=== PATIENT | female | born 1965 | race Caucasian/White ===

== ENCOUNTER 2020-05-08 10:38 | Outpatient (CLI) | payer OTHER, SELFPAY ==
--- NOTE | ~2020-05-08 | US_ITS ---
EXAMINATION: US venous doppler [facility] DATE: 05/08/2020 11:55 INDICATION: Left lower limb swelling TECHNIQUE: Grayscale ultrasound images without and with compression and Doppler ultrasound images of the left lower extremity veins were obtained. COMPARISON: None. FINDINGS: The visualized portions of left common femoral vein, profunda (deep) femoral vein, femoral vein, popl iteal vein, peroneal veins, posterior tibial veins, gastrocnemius vein and greater saphenous vein out flow are patent. IMPRESSION: 1. No deep venous thrombosis in the left lower limb. Reviewed, dictated and finalized at location A.
[2020-05-08 11:29] LABS: Alanine Aminotransferase 26 U/L (4-35); Albumin Level 4.2 g/dL (3.5-5.1); Alkaline Phosphatase 73 U/L (38-126); Aspartate Amino Transferase 27 U/L (14-36); Bilirubin,Total 1.7 mg/dL (0.2-1.3); Blood Urea Nitrogen 11 mg/dL (7-17); Calcium 8.7 mg/dL (8.4-10.2); Carbon Dioxide 27 mmol/L (22-30); Chloride 101 mmol/L (98-107); Cholesterol 195 mg/dL (0-200); Estimated Glomerular Filt Rate > 60; Glucose 199 mg/dL (65-105); HDL Direct 52 mg/dL; Potassium 4.2 mmol/L (3.4-5.0); Sodium 134 mmol/L (137-145); Triglycerides 148 mg/dL (<150)
[2020-05-08 11:40] LABS: LDL Cholesterol Direct 115 mg/dL
[2020-05-08 12:21] LABS: Thyroid Stimulating Hormone Reflex 0.685 uIU/mL (0.465-4.68)
== END 2020-05-08 10:39 | disposition home or self-care (01) ==
PROVIDERS: PCP Internal Medicine; Visit Provider Internal Medicine Cardiovascular Disease
DX: R60.0 Localized edema (principal); E78.5 Hyperlipidemia, unspecified
CPT/HCPCS: 36415; 80053; 80061; 83735; 84443; 93971

== ENCOUNTER 2020-06-10 12:29 | Outpatient (CLI) | payer OTHER, SELFPAY ==
--- NOTE | 2020-06-10 13:07 | ECHO_ITS ---
Patient Info Name: Lor Kasper Age: 55 years : 1965 Gender: Female Ht: 68 in Wt: 185 lbs BSA: 2.03 m2 HR: 65 bpm BP: 96 / 63 mmHg Technical Quality: Good Exam Date: 06/10/2020 1:21 PM Exam Location: [facility] Patient Status: Outpatient Admit Date: 06/10/2020 Staff Ordering Physician: Keyshawn Moralez DO Biztalk Software Developer: Edilia Live, CHIEF FINANCIAL OFFICER Attending Provider: Keyshawn Moralez DO Referring Physician: Kirt NEELY; Exam Type: CA echo doppler color flow Study Info Indications E78.5 - Hyperlipidemia, unspecified Complete two-dimensional, color flow and Doppler transthoracic echocardiogram is performed. Summary 1. Left ventricular chamber dimension is normal. 2. Left ventricular systolic function is normal, estimated at 60-65%. 3. The left ventricular diastolic function is grade I diastolic dysfunction. 4. E/e' 16 is elevated. 5. There is trace aortic valve regurgitation. 6. There is trace mitral valve regurgitation. 7. There is mild tricuspid valve regurgitation. 8. No pulmonary hypertension, estimated pulmonary arterial systolic pressure is 29 mmHg. 9. There is trace pulmonic regurgitation. 10. There is trivial pericardial effusion. Left Ventricle E/e' 16 is elevated. Left ventricular chamber dimension is normal. Left ventricular systolic function is normal, estimated at 60-65%. The left ventricular diastolic function is grade I diastolic dysfunction. Right Ventricle Right ventricular chamber dimension is normal. Right ventricular systolic function is normal. Left Atria Left atrial chamber dimension is normal. Right Atria Right atrial chamber dimension is normal. Aortic Valve The aortic valve is trileaflet. There is no aortic valve stenosis. There is trace aortic valve regurgitation. Pulmonic Valve There is trace pulmonic regurgitation. Mitral Valve There is no mitral valve stenosis. There is trace mitral valve regurgitation. Tricuspid Valve There is mild tricuspid valve regurgitation. No pulmonary hypertension, estimated pulmonary arterial systolic pressure is 29 mmHg. Pericardium/Pleural There is trivial pericardial effusion. Inferior Vena Cava Normal inferior vena cava with >50% collapse upon inspiration consistent with normal right atrial pressure, 5 mmHg. Aorta The aortic root size at the sinus of Valsalva is normal. Left Ventricular Outflow Tract Name Value Normal LVOT 2D LVOT Diameter 2.0 cm LVOT Doppler LVOT Peak Gradient 4 mmHg LVOT Mean Gradient 2 mmHg LVOT VTI 19 cm LVOT VTI/AV VTI Ratio 0.7 LVOT Stroke Volume 59 ml LVOT CO 4.5 l/min LVOT CI 2.2 l/min/m2 Mitral Valve Name Value Normal MV Doppler
== END 2020-06-10 12:30 | disposition home or self-care (01) ==
PROVIDERS: PCP Internal Medicine; Visit Provider Internal Medicine Cardiovascular Disease
DX: E66.9 Obesity, unspecified (principal); E78.5 Hyperlipidemia, unspecified; R60.0 Localized edema
CPT/HCPCS: 93306

== ENCOUNTER 2020-08-22 09:04 | Outpatient (CLI) | payer OTHER, SELFPAY ==
--- NOTE | 2020-08-22 09:18 | EST_ITS ---
Patient Info Name: Lor Kasper Age: 55 years : 1965 Gender: Female Ht: 68 in Wt: 190 lbs BSA: 2.05 m2 Technical Quality: Good Exam Date: 08/22/2020 10:09 AM [facility] Patient Status: Outpatient Admit Date: 08/22/2020 Staff Ordering Physician: Keyshawn Berumen DO Whale Fisherman: Joel Oliveira RDCS, RT Attending Provider: KEYSHAWN BERUMEN DO Referring Physician: Kirt NEELY; Exercise Technologist: Suzan Day RDCS Exercise Physician: Keyshawn Berumen DO Exam Type: CA stress echo Study Info Indications R07.9 - Chest pain, unspecified Treadmill exercise stress echocardiogram is performed. Summary 1. 1. Negative Randy exercise stress test for ischemic ST changes by ECG criteria. 2. 2. Reduced functional capacity, achieving 7 METs of workload. 3. 3. Appropriate HR response to exercise. 4. 4. Appropriate HR recovery at 1 minute post exercise. 5. 5. Negative stress echocardiogram for ischemia by wall motion analysis. 6. 6. Patient informed of the above results. Stress Echo Findings Left Ventricle Appropriate increase in LV endocardial thickening with systole. Appropriate augmentation of contractility with systole. No wall motion abnormality. Left Ventricle Normal LV systolic function, no wall motion abnormality. Protocol: Randy Stress ECG Details Stage: REST Duration (min): 5 min : 49 sec Speed (mph): 0.0 Grade (%): 0 HR (bpm): 66 SBP (mmHg): 119 DBP (mmHg): 69 METS: --- Stage: REST Duration (min): 20 min : 30 sec Speed (mph): 0.0 Grade (%): 0 HR (bpm): 74 SBP (mmHg): 119 DBP (mmHg): 69 METS: --- Stage: STAGE 1 Duration (min): 1 min : 0 sec Speed (mph): 1.7 Grade (%): 10 HR (bpm): 99 SBP (mmHg): 119 DBP (mmHg): 69 METS: --- Stage: STAGE 1 Duration (min): 2 min : 0 sec Speed (mph): 1.7 Grade (%): 10 HR (bpm): 119 SBP (mmHg): 119 DBP (mmHg): 69 METS: --- Stage: STAGE 1 Duration (min): 3 min : 0 sec Speed (mph): 1.7 Grade (%): 10 HR (bpm): 126 SBP (mmHg): 162 DBP (mmHg): 85 METS: --- Stage: STAGE 2 Duration (min): 1 min : 0 sec Speed (mph): 2.5 Grade (%): 12 HR (bpm): 137 SBP (mmHg): 162 DBP (mmHg): 85 METS: --- Stage: STAGE 2 Duration (min): 2 min : 0 sec Speed (mph): 2.5 Grade (%): 12 HR (bpm): 150 SBP (mmHg): 198 DBP (mmHg): 81 METS: --- Stage: STAGE 2 Duration (min): 3 min : 0 sec Speed (mph): 2.5 Grade (%): 12 HR (bpm): 152 SBP (mmHg): 198 DBP (mmHg): 81 METS: --- Stage: STAGE 3 Duration (min): 0 min : 1 sec Speed (mph): 0.0 Grade (%): 0 HR (bpm): 152 SBP (mmHg): 198 DBP (mmHg): 81 METS: --- Stage: RECOVERY Duration (min): 0 min : 58 sec Speed (mph): 0.0 Grade (%): 0 HR (bpm): 113 SBP (mmHg): 182 DBP (mmHg): 71 METS: --- Stage: RECOVERY Duration (min): 1 min : 58 sec Speed (mph)
== END 2020-08-22 09:05 | disposition home or self-care (01) ==
PROVIDERS: PCP Internal Medicine; Visit Provider Internal Medicine Cardiovascular Disease
DX: R07.9 Chest pain, unspecified (principal)
CPT/HCPCS: 93351

== ENCOUNTER 2021-03-12 13:37 | Outpatient (CLI) | payer BC, SELFPAY ==
--- NOTE | ~2021-03-12 | CT_ITS ---
EXAMINATION: CT abdomen pelvis wo con DATE: 03/12/2021 14:19 INDICATION: Right flank pain TECHNIQUE: Computed tomography (CT) of the abdomen and pelvis was performed without intravenous contr ast. Automated exposure control and iterative reconstruction technique were employed. Exam dose: 270 .37 mGy-cm total exam DLP. COMPARISON: 03/12/2021 KUB 01/20/2016 CT abdomen pelvis with IV contrast material. FINDINGS: The lung bases are clear. Normal heart size. Trace pericardial fluid. No pleural effusion. Status post cholecystectomy. No hepatic, splenic, pancreatic, right adrenal space-occupying mass lesion is evident on this limited noncontrast examination. Probable 11 mm left adrenal adenoma. The kidneys appear unremarkable. No urinary tract calculus or hydroureteronephrosis. The urinary blad francesca is evacuated, not optimally evaluated. Status post hysterectomy. Bilateral ovarian cysts measuring up to 3.8 cm on the right and 3.2 cm on t he left. There is atherosclerotic calcification but normal caliber of the abdominal aorta. No intraperitoneal or retroperitoneal or pelvic mass lesion or adenopathy or ascites is evident. No bowel obstruction, bowel wall thickening, pneumatosis or intraperitoneal free air. Degenerative spurring of the thoracic spine. No suspicious osteolytic or osteoblastic lesions are not ed. IMPRESSION: Status post cholecystectomy Stable probable cysts 11 mm left adrenal adenoma Up to 3.8 cm right and 3.2 cm left ovarian cysts Reviewed, dictated and finalized at Location A. Reviewed, dictated and finalized at location B.
--- NOTE | ~2021-03-12 | XR_ITS ---
EXAMINATION: XR abdomen/kub 1V INDICATION: Right flank pain TECHNIQUE: Supine views of the abdomen were obtained on 2 radiographs. COMPARISON: CT from today FINDINGS: No urolithiasis is identified. There are multiple phleboliths of the pelvis. The bowel gas pattern is normal. Cholecystectomy clips are noted. IMPRESSION: 1. No urolithiasis identified. Reviewed, dictated and finalized at location A.
== END 2021-03-12 13:38 | disposition home or self-care (01) ==
LOC: ANHIMG 13:41
PROVIDERS: PCP Internal Medicine; Visit Provider Urology
DX: R10.9 Unspecified abdominal pain (principal); Z90.49 Acquired absence of other specified parts of digestive tract; N83.202 Unspecified ovarian cyst, left side
CPT/HCPCS: 74018; 74176

== ENCOUNTER 2023-05-11 07:28 | Outpatient (CLI) | payer BC, SELFPAY ==
--- NOTE | ~2023-05-11 | NM_ITS ---
EXAMINATION: NM leandra stress w perfusion DATE: 05/11/2023 10:47 INDICATION: Chest pain. TECHNIQUE: Rest images were obtained following intravenous administration of 10.5 mCi Tc99m tetrofosm in (Myoview). The patient was infused intravenously with Lexiscan (regadenoson). Then, 33.66 mCi Tc99 m tetrofosmin (Myoview) was administered intravenously, and stress images were obtained. Data was rec onstructed into short axis and horizontal and vertical long axis SPECT images. Gated SPECT images wer e also obtained. COMPARISON: CT abdomen and pelvis 03/12/2021 FINDINGS: There is no definite reversible or fixed perfusion abnormality to suggest ischemia or infar ction. There is no segmental wall motion abnormality. Left ventricular ejection fraction measures > 70%. IMPRESSION: 1. No definite ischemia or infarct. 2. Normal left ventricular ejection fraction measuring >70%. Reviewed, dictated and finalized at location A.
--- NOTE | 2023-05-11 07:30 | ECHO_ITS ---
Patient Info Name: Lor Kasper Age: 58 years : 1965 Gender: Female Ht: 67 in Wt: 180 lbs BSA: 1.98 m2 HR: 75 bpm BP: 112 / 72 mmHg Heart Rhythm: Sinus Rhythm Technical Quality: Fair Exam Date: 05/11/2023 7:47 AM Exam Location: [facility] Patient Status: Outpatient Admit Date: 05/11/2023 Staff Ordering Physician: Keyshawn Moralez DO Marketing Technologist: Bela Calix RDCS Attending Provider: Keyshawn Moralez DO Referring Physician: Kirt NEELY; Exam Type: CA echo doppler color flow Study Info Indications R07.9 - Chest pain, unspecified Complete two-dimensional, color flow and Doppler transthoracic echocardiogram is performed. Summary 1. Complete two-dimensional, color flow and Doppler transthoracic echocardiogram is performed. 2. Left ventricular chamber dimension is normal. 3. Left ventricular systolic function is normal, estimated at 65-70%. 4. The left ventricular diastolic function is grade I diastolic dysfunction. 5. E/e' 16 is elevated. 6. There is mild tricuspid valve regurgitation. 7. No pulmonary hypertension, estimated pulmonary arterial systolic pressure is 23 mmHg. Left Ventricle E/e' 16 is elevated. Left ventricular chamber dimension is normal. Left ventricular systolic function is normal, estimated at 65-70%. The left ventricular diastolic function is grade I diastolic dysfunction. Right Ventricle Right ventricular chamber dimension is normal. Right ventricular systolic function is normal. Left Atria Left atrial chamber dimension is normal. Right Atria Right atrial chamber dimension is normal. Aortic Valve The aortic valve is trileaflet. There is no aortic valve stenosis. There is no aortic valve regurgitation. Pulmonic Valve There is no pulmonic regurgitation. Mitral Valve There is no mitral valve stenosis. There is no mitral valve regurgitation. Tricuspid Valve There is mild tricuspid valve regurgitation. No pulmonary hypertension, estimated pulmonary arterial systolic pressure is 23 mmHg. Pericardium/Pleural There is no pericardial effusion. Inferior Vena Cava Normal inferior vena cava with >50% collapse upon inspiration consistent with normal right atrial pressure, 5 mmHg. Aorta The aortic root size at the sinus of Valsalva is normal. Left Ventricular Outflow Tract Name Value Normal LVOT 2D LVOT Diameter 2.0 cm LVOT Doppler LVOT Peak Gradient 3 mmHg LVOT Mean Gradient 2 mmHg LVOT VTI 18 cm LVOT VTI/AV VTI Ratio 0.8 LVOT Stroke Volume 59 ml LVOT CO 4.0 l/min LVOT CI 2.0 l/min/m2 Pulmonic Valve Name Value Normal RVOT Doppler RVOT Peak Gradient 2 mmHg PV Doppler PV Peak Grad
--- NOTE | 2023-05-11 07:30 | EST_ITS ---
Patient Info Name: Lor Kasper Age: 58 years : 1965 Gender: Female Ht: 67 in Wt: 180 lbs BSA: 1.98 m2 HR: 76 bpm BP: 136 / 75 mmHg Heart Rhythm: Sinus Rhythm Exam Date: 05/11/2023 9:38 AM Exam Location: [facility] Stress Patient Status: Outpatient Admit Date: 05/11/2023 Staff Ordering Physician: Keyshawn Moralez DO Attending Provider: Keyshawn Moralez DO Exercise Technologist: Aparna Xiong CT Exercise Physician: Keyshawn Moralez DO Exam Type: CA stress leandra w NM Study Info Indications R07.9 - Chest pain, unspecified R06.09 - Other forms of dyspnea A regadenoson stress test was performed. Summary 1. 1. Negative lexiscan stress test for ischemic ST changes by ECG criteria. 2. 2. Stable hemodynamics throughout the test. 3. 3. Nuclear scan to follow and will be reported separately. Please correlate with it. 4. 4. Patient informed of the above results. Protocol: Lexiscan Stress ECG Details Stage: REST Duration (min): 1 min : 4 sec HR (bpm): 73 SBP (mmHg): 136 DBP (mmHg): 75 Stage: REST Duration (min): 17 min : 7 sec HR (bpm): 76 SBP (mmHg): 136 DBP (mmHg): 75 Stage: STAGE 1 Duration (min): 0 min : 59 sec HR (bpm): 105 SBP (mmHg): 132 DBP (mmHg): 71 Stage: RECOVERY Duration (min): 1 min : 0 sec HR (bpm): 114 SBP (mmHg): 132 DBP (mmHg): 71 Stage: RECOVERY Duration (min): 2 min : 0 sec HR (bpm): 113 SBP (mmHg): 132 DBP (mmHg): 71 Stage: RECOVERY Duration (min): 3 min : 0 sec HR (bpm): 101 SBP (mmHg): 152 DBP (mmHg): 72 Stage: RECOVERY Duration (min): 3 min : 6 sec HR (bpm): 97 SBP (mmHg): 152 DBP (mmHg): 72 Rest HR: 76 bpm Peak HR: 121 bpm Rest Sys BP: 136 mmHg Peak Sys BP: 152 mmHg Max Pred HR: 163 bpm % Max Pred HR: 74 % Target HR: 139 bpm Max RPP: 18,392 bpm*mmHg Termination Reason: Completed protocol Cardiac Symptoms: Shortness of breath Total Time: 1 min : 0 sec Rest Garcia BP: 75 mmHg Peak Garcia BP: 72 mmHg Total Dose: 0.4 mg Resting ECG Sinus rhythm. Stress ECG No ST changes. Arrhythmias None. Report Signatures
== END 2023-05-11 07:29 | disposition home or self-care (01) ==
PROVIDERS: PCP Physician Assistant Medical; Visit Provider Internal Medicine Cardiovascular Disease
DX: R07.9 Chest pain, unspecified (principal); I36.1 Nonrheumatic tricuspid (valve) insufficiency
CPT/HCPCS: 78452; 93017; 93306; A9502; J2785

== ENCOUNTER 2024-01-24 09:44 | Outpatient (CLI) | payer BC, SELFPAY ==
--- NOTE | ~2024-01-24 | MR_ITS ---
EXAMINATION: MRA brain wo con DATE: 01/24/2024 10:12 INDICATION: Generalized headache. TECHNIQUE: Magnetic resonance angiography (MRA) of the brain was performed without intravenous contra st with T1-weighted SPGR by the 3D [id number] technique. Maximum intensity projection 3D-reconstr uctions were obtained. COMPARISON: None. FINDINGS: The vertebral arteries are codominant. There is no significant stenosis of basilar artery or the post erior cerebral arteries. There is no significant stenosis of the intracranial internal carotid arteri es or anterior or middle cerebral arteries. Anterior communicating artery is normal. Right posterior communicating artery is normal. A left posterior commuting artery is not identified. There is no aneu rysm. IMPRESSION: 1. Normal MRA. Reviewed, dictated and finalized at location A. IMPRESSION: 1. Normal MRA.
--- NOTE | ~2024-01-24 | MR_ITS ---
EXAMINATION: MR brain/brain stem wo con DATE: 01/24/2024 10:22 INDICATION: Generalized headache. TECHNIQUE: Magnetic resonance imaging (MRI) of the brain and brainstem was performed without intraven ous contrast. COMPARISON: None. FINDINGS: There is an empty sella. There is a focus of increased T2-weighted signal intensity in the right frontal lobe deep white matter, which is normal as an isolated finding. There is no intracrania l hemorrhage, acute infarction, or abnormal intracranial mass lesion. The ventricles are normal in si ze. The orbits are normal. There is mild mucosal thickening in the ethmoid sinuses. The mastoid air c ells are normal. IMPRESSION: 1. Empty sella. Reviewed, dictated and finalized at location A. IMPRESSION: 1. Empty sella.
== END 2024-01-24 09:45 ==
PROVIDERS: PCP Physician Assistant Medical; Visit Provider Internal Medicine Rheumatology
DX: G43.909 Migraine, unspecified, not intractable, without status migrainosus (principal); E23.6 Other disorders of pituitary gland
CPT/HCPCS: 70544; 70551

== ENCOUNTER 2024-10-22 10:14 | Outpatient (CLI) | payer BC, SELFPAY ==
--- NOTE | ~2024-10-22 | MR_ITS ---
EXAMINATION: MR brain/brain stem wo con DATE: 10/22/2024 10:45 INDICATION: Headache and dizziness. TECHNIQUE: Magnetic resonance imaging (MRI) of the brain and brainstem was performed without intraven ous contrast. COMPARISON: Brain MRI 01/24/2024 FINDINGS: There is an empty sella. There is no intracranial hemorrhage, acute infarction, or abnormal intracranial mass lesion. The ventricles are normal in size. The mastoid air cells are normal. There is mild mucosal thickening in the paranasal sinuses. The orbits are normal. IMPRESSION: 1. Empty sella. Reviewed, dictated and finalized at location A. PRODUCTION SUPERVISOR IMPRESSION: 1. Empty sella.
== END 2024-10-22 10:15 | disposition home or self-care (01) ==
PROVIDERS: PCP Internal Medicine Rheumatology; Visit Provider Internal Medicine Rheumatology
DX: E23.6 Other disorders of pituitary gland (principal)
CPT/HCPCS: 70551

== ENCOUNTER 2025-03-13 13:55 | Outpatient (CLI) | payer BC, SELFPAY ==
--- NOTE | ~2025-03-13 | MR_ITS ---
MRI of the cervical spine Clinical History: Spinal stenosis Technique: Axial T2-weighted and gradient images, and sagittal T1-weighted, T2-weighted, and STIR fallon ges were acquired. Findings: There is straightening of the normal cervical lordosis. No fracture or sublocation seen. No bone marrow signal abnormality seen. At C2-C3, there is no disc bulge or herniation. There is minimal left facet arthropathy. No central c anal stenosis, cord compression, or neural foraminal narrowing. At C3-C4, there is minimal disc bulge. No spinal canal stenosis, cord compression, or neural foramina l narrowing. At C4-C5, there is disc osteophyte complex, most pronounced at the right paracentral to right foramin al region. There is right neural foraminal narrowing. Probable minimal left neural foraminal narrowin g. There is moderate canal stenosis without hubert cord compression. At C5-C6, there is disc osteophyte complex with moderate canal stenosis but no hubert cord compression . There is bilateral neural foraminal narrowing. At C6-C7, there is degenerative disc narrowing with disc osteophyte complex. There is moderate to sev ere canal stenosis with mild cord compression ventrally. There is severe bilateral neural foraminal n arrowing. No abnormal signal seen in the spinal cord. Paravertebral soft tissues are unremarkable. Impression: Severe degenerative spondylosis at C6-C7, with canal stenosis and mild cord compression, as detailed above. Moderate degenerative spondylosis at C4-C5 and C5-C6, as detailed above. Reviewed, dictated and finalized at [facility]. Impression: Severe degenerative spondylosis at C6-C7, with canal stenosis and mild cord com pression, as detailed above. Moderate degenerative spondylosis at C4-C5 and C5-C6, as detailed above.
== END 2025-03-13 13:56 | disposition home or self-care (01) ==
PROVIDERS: PCP Nurse Practitioner Family; Visit Provider Nurse Practitioner Family
DX: M48.02 Spinal stenosis, cervical region (principal); M47.892 Other spondylosis, cervical region; G95.29 Other cord compression
CPT/HCPCS: 72141

== ENCOUNTER 2025-05-14 12:50 | Outpatient (CLI) | payer BC, SELFPAY ==
--- NOTE | ~2025-05-14 | MR_ITS ---
EXAMINATION: MR abdomen wo/w con DATE: 05/14/2025 13:46 INDICATION: Adrenal nodule TECHNIQUE: Magnetic resonance imaging (MRI) of the abdomen was performed without and with 17 mL Multi sherrill intravenous contrast. Sequences included coronal and axial T2-weighted SS-FSE, axial FS 2D-FIES TA, coronal and axial dual-echo T1-weighted FSPGR, axial T1-weighted LAVA, and axial STIR FSE. Postco ntrast axial T1-weighted LAVA images were obtained in a time course. Postcontrast coronal T1-weighted LAVA images were obtained. COMPARISON: CT dated 03/12/2021 FINDINGS: Heart size is normal. No pericardial effusion. Very small posterior layering bilateral pleural effusi ons. 1.4 x 1.2 cm bilobed right hepatic lobe cyst. Common bile duct is mildly dilated to 9 mm likely related to prior cholecystectomy with surgical clips the gallbladder fossa. No intrahepatic biliary d uctal dilation or evident choledocholithiasis. Spleen, pancreas, right adrenal gland and bilateral ki dneys are normal. No significant interval change in a 12 mm left adrenal adenoma with characteristic low-attenuation on prior CT and prominent signal dropout on the opposed phase imaging in the current study. Visualized bowels are unremarkable. No pathologically enlarged abdominal or upper pelvic lymph adenopathy. Bones are unremarkable with normal marrow signal throughout. IMPRESSION: 1. 12 mm left adrenal adenoma. Reviewed, dictated and finalized at location A.
== END 2025-05-14 12:51 | disposition home or self-care (01) ==
PROVIDERS: PCP Nurse Practitioner Family; Visit Provider Physician Assistant
DX: D35.02 Benign neoplasm of left adrenal gland (principal)
CPT/HCPCS: 74183; A9577